=== PATIENT | female | born 2000 | race Caucasian/White ===

== ENCOUNTER 2021-10-17 15:07 | Emergency (ER) | payer OTHER, SELFPAY ==
[2021-10-17 15:10] VITALS: BP 159/83; PULSE 122; RESP 18; TEMP 37.5; O2SAT 100; BMI 22.7
--- NOTE | 2021-10-17 15:22 | ED_ITS ---
HPI - URI/Sore Throat General Chief Complaint: Upper Respiratory Symptoms Stated Complaint: flu like symptoms/sore throat Time Seen by Provider: 10/17/21 15:12 Source: patient Mode of arrival: ambulatory Limitations: no limitations History of Present Illness HPI Narrative: 21yo female previously healthy here with 4 days of cough, subjective fevers, body aches, congestion. No shortness of breath, chest pain, vomiting, diarrhea, rash, neckpain/stiffness. Received moderna x2. Related Data Previous Rx's Medication Instructions Recorded oseltamivir 75 mg capsule (Tamiflu) 75 mg PO Q12H 5 Days #10 cap 10/17/21 Allergies Allergy/AdvReac Type Severity Reaction Status Date / Time acetaminophen Allergy Nausea Verified 10/17/21 15:25 Review of Systems Review of Systems: Yes all other systems are reviewed and are negative Constitutional: Constitutional: Reports no additional constitutional complaints, Reports body ache(s), Denies chills, Reports fever(s), Denies headache(s) and Denies weakness Eyes: Eyes: Reports no additional eye complaints and Denies change in vision ENT: Reports system reviewed and no additional complaints, except as documented, Denies dizziness, Denies headache(s), Reports nasal congestion, Denies nasal discharge and Denies neck pain Cardiovascular: Cardiovascular: Reports no additional cardiovascular complaints, Denies chest pain, Denies leg edema and Denies dyspnea Respiratory: Respiratory: Reports no additional respiratory complaints, Reports cough and Denies dyspnea Gastrointestinal: Gastrointestinal: Reports no additional gastrointestinal complaints, Denies abdominal pain, Denies diarrhea, Denies nausea and Denies vomiting Genitourinary: Genitourinary: Reports no additional female genitourinary complaints and Denies urinary incontinence Musculoskeletal: Musculoskeletal: Reports no additional musculoskeletal complaints, Denies back pain, Denies arthralgias, Denies joint swelling, Denies neck pain, Denies numbness and Denies tingling Integumentary/Breasts: Skin/Breast: Reports system reviewed and no additional complaints, except as docu and Denies rash Neurologic: Denies Abnormal speech present, Denies dizziness, Denies headache(s), Denies numbness, Denies tingling and Denies weakness PMFSH Past Medical History Attestation statement: The following information was validated with the patient. Source: old records reviewed and nursing notes reviewed Social History Social History Advance Directives: No Advance Directives Information Provided: No Patient : No Physical Exam Vital Signs: Vital Signs: Last Vital Signs Temp 97.5 F 10/17/21 16:15 Pulse 108 H 10/17/21 16:15 Resp 18 10/17/21 16:15 BP 159/83 H 10/17/21 15:10 Pulse Ox 98 10/17/21 16:15 BMI result Body Mass Index 22.7 Const: General: cooperative, healthy appearing, comfortable and no acute distress Orientation/consciousness: patient oriented x3 Limitations: no li mitations HEENT: Head: Yes normal to inspection Ears: hearing grossly normal bilaterally and TM's normal bilaterally General nose exam: Normal external nose present Face and sinus: Yes normal facial exam Mouth: Normal oral and palatal mucosa present Throat: Yes posterior oropharynx normal, Yes tonsils normal and Yes uvula midline Eyes: General: appearance normal, both eyes and all related structures Pupils: Equal, round and reactive pupils present Neck: Neck: Yes normal visual inspection, Yes full ROM, Yes no lymphadenopathy and Yes no meningeal signs Chest: Chest palpation & inspection: normal inspection of the chest Resp: Effort & Inspection: normal respiratory effort Auscultation: clear to auscultation bilaterally Cardio: Rate: regular rate Rhythm: regular rhythm Peripheral pulses: Peripheral pulses 2+ throughout GI: Inspection: Yes normal to inspection Palpation (GI): Soft to palpation and nontender Auscultation: normal bowel sounds Back/Spine/Pelvis: Thoracic/Lumbar Spine: thoracic and lumbar spine normal to inspection Skin: General skin exam: no rashes or lesions noted Neuro: General: patient oriented x3, no meningeal signs, no focal motor deficits and normal sensation to monofilament Cranial nerves: Yes Equal, round and reactive pupils present Cognition (Neuro): normal cognition Speech: No Abnormal speech present Gait exam (Neuro): Normal gait present Motor exam (neuro): 5/5 motor strength present throughout Extrem: General: Yes normal to inspection Course Course Course Narrative: 21yo female here with flu like symptoms x 4 days. Low grade temp here with tachycardia. Will check covid/flu screening, give ibuprofen and re-assess 1615-flu A positive. Heart rate and temp improved after Motrin. Plan for discharge home with course of Tamiflu. Reviewed side effects with patient. Reviewed worrisome signs and symptoms of when to return to the emergency department. Comfortable discharge home. MDM - URI/Sore Throat Differential Diagnosis Differential diagnosis: Likely viral infection and influenza Medical Records Attestation: I reviewed the patient's medical records. Lab Data Attestation: I reviewed the patient's lab results. Labs: Lab Results 10/17/21 10/17/21 Range/Units 15:20 15:20 COVID-19 (REECE) Negative (Negative) COVID-19 Clin Com See Note Influenza Type A (COLLEEN) Positive A (Negative) Influenza Type B (COLLEEN) Negative (Negative) Influenza A & B Note See Note Discharge Plan Discharge Clinical Impression: Influenza Patient Disposition: Home, Self-Care Instructions: Influenza (DC) Additional Instructions: COVID screen negative Alternate motrin/tylenol for pain or fever Increase fluids, rest Prescriptions: New oseltamivir [Tamiflu] 75 mg capsule 75 mg PO Q12H 5 Days Qty: 10 0RF Referrals: Physician,Nonstaff [Primary Care Provider] - 1 week (for persistent symptoms ) Stand Alone Forms: Work/School Release Interventions: ED Discharge Assessment Last Done: 10/17/21 16:23
[2021-10-17] MEDS: Ibuprofen 600 MG TABLET PO (15:35)
[2021-10-17 15:41] LABS: COVID-19 Test Negative (Negative); IDNOW Serial# 16C4AD1C
[2021-10-17 15:44] LABS: Influenza A Positive (Negative); Influenza B2 Negative (Negative)
[2021-10-17 16:15] VITALS: PULSE 108; RESP 18; TEMP 36.4; O2SAT 98
== END 2021-10-17 16:24 | disposition home or self-care (01) ==
PROVIDERS: Nurse Practitioner Family; Emergency Provider Emergency Medicine
DX: J11.1 Influenza due to unidentified influenza virus with other respiratory manifestations (principal); Z20.822 Contact with and (suspected) exposure to COVID-19; R50.9 Fever, unspecified
CPT/HCPCS: 87502; 87635; 99283

== ENCOUNTER → 2024-11-19 08:00 | Outpatient (BNV) | payer BC, SELFPAY | PROVIDERS: Visit Provider Internal Medicine Cardiovascular Disease | DX: R00.0 Tachycardia, unspecified (principal) | CPT/HCPCS: 93244 ==

== ENCOUNTER → 2024-11-19 08:30 | Outpatient (REF) | payer BC, SELFPAY ==
--- OUTSIDE RECORDS SUMMARY | 2024-11-20 17:15 | XMS_ITS | Clinical Summary ---
Author Organization [address] [address] Phone Care Team Providers Care Manager Filter Name Role Phone Hugo Peoples DO Primary Care Provider [phone] Allergies Active Allergy Reactions Criticality Noted Date Comments Acetaminophen Dizziness,Other (See Comments) Medium 08/25/2022 Diphenhydramine Dizziness High 08/22/2023 Hallucinations Medications buPROPion XL (WELLBUTRIN XL) 300 mg 24 hr tablet Take 1 tablet (300 mg total) by mouth every morning. Active busPIRone (BUSPAR) 5 mg tablet TAKE BY 1 BY MOUTH 2 TIMES A DAY FOR 3 DAYS, THEN 2 BY MOUTH 2 TIMES A DAY 07/15/2023 Active APRI 0.15-0.03 mg per tablet TAKE 1 TABLET BY MOUTH EVERY DAY PT NEEDS APPT 06/26/2023 Active inositoL-D chiro inositoL 2,000-50 mg PwPk Take by mouth. Active Social History Tobacco Use Types Packs/Day Years Used Date Smoking Tobacco: Never Smokeless Tobacco: Never Tobacco Cessation:Counseling Given: Not Answered Alcohol Use Standard Drinks/Week Comments Not Currently 0 (1 standard drink = 0.6 oz pur e alcohol) Comments No Sex and Gender Information Value Date Recorded Sex Assigned at Not on file Legal Sex Female 6:32 AM EST Gender Identity Not on file Sexual Orientation Not on file Last Filed Vital Signs Vital Sign Reading Time Taken Comments Blood Pressure - - Pulse - - Temperature - - Respiratory Rate - - Oxygen Saturation - - Inhaled Oxygen Concentration - - Weight 72.6 kg (160 lb) 08/22/2023 12:54 PM EST Height 170.2 cm (5' 7 ) 08/22/2023 12:54 PM EST Body Mass Index 25.06 08/22/2023 12:54 PM EST Plan of Treatment Health Maintenance Due Date Last Done Comments MMR Vaccines (1 of 1 - Stand emeirta series) 2002 DTaP/TDaP Vaccines (1 - Tdap) 2008 HIV screening 2014 Varicella Vaccines (1 of 2 - 13+ 2-dose series) 2014 HPV vaccine series (1 - 3-do se series) 2016 Chlamydia screening 2018 Hepatitis C screening 2019 Hepatitis B vaccine series ( 1 of 3 - 19+ 3-dose series) 2020 Tetanus adult (Td q 10,TDAP once) 2021 Cervical cancer screening 2022 Covid-19 vaccine series (2 - season) 2024 08/22/2021 Influenza vaccine 03/18/2025 RSV Immunization (1 - 1-dose 75+ series) 2076 HIB Vaccines Aged Out No longer eligi ble based on patient's age to complete this topic Hepatitis A Vaccines Aged Out No long er eligible based on patient's age to complete this topic IPV Vaccines Aged Out No longer eligi ble based on patient's age to complete this topic Meningococcal Vaccine Aged Out No margie kash eligible based on patient's age to complete this topic Pneumococcal Vaccine (2 - 49 years) Aged Out No longer eligible b ased on patient's age to complete this topic Rotavirus Vaccines Aged Out No longer eligible based on patient's age to complete this topic Insurance [facility] CIGNA CIGNA Care Teams Manager Filter Relationship Specialty Start Date End Date Hugo Peoples DO [address] [facility] [address] [place] [phone] PCP - General Family Medicine 05/30/23
--- OUTSIDE RECORDS SUMMARY | 2024-11-20 17:15 | XMS_ITS | Encounter Summary ---
Author Organization [facility] and [facility] Address [address] [place] [phone] Care Team Providers Care Merchandising Representative Name Role Phone Hugo Peoples DO Primary Care Provider [phone] Reason for Referral * Consultation (Routine) - Closed Specialty Diagnoses / Procedures Referred By Contact Referred To Contact Reproductive Endocrinology/Infertili ty Diagnoses PCOS (polycystic ovarian syndrome) Hugo Peoples DO [address] [address] Phone: tel:[phone] fax: Reproductive Endocrinology & Infertility at [address] [place] [address] Phone: tel: Referral ID Status Reason Start Date Expiration Date V isits Requested Visits Authorized [id number] Closed Specialty Services Required 05/30/2023 05/29/2024 1 1 Encounter Details Date Type Department Care Team (Latest Contact Info) Description 05/30/2023 Transcribed Orders Reproductive Endocrinology & Infertility at [address] [place] [address] Obtain, Unable To PCOS (polycystic ovarian syndrome) (Primary Dx) Social History Tobacco Use Types Packs/Day Years Used Date Smoking Tobacco: Never Assessed Comments Unknown Sex and Gender Information Value Date Recorded Sex Assigned at Not on file Legal Sex Female 6:32 AM EST Gender Identity Not on file Sexual Orientation Not on file documented as of this encounter Plan of Treatment Scheduled Referrals Name Type Priority Associated Diagnoses Order Schedule Ambulatory referral to Reproductive Endocrinology/Inferti lity Outpatient Referral Routine PCOS (polycystic ovarian syndrome) Ordered: 05/30/2023 documented as of this encounter Visit Diagnoses Diagnosis PCOS (polycystic ovarian syndrome)- Primary Polycystic ovaries documented in this encounter Care Teams Merchandising Representative Relationship Specialty Start Date End Date Hugo Peoples DO [address] [facility] [address] [place] [phone] PCP - General Family Medicine 05/30/23 documented as of this encounter
--- OUTSIDE RECORDS SUMMARY | 2024-11-20 17:15 | XMS_ITS | Encounter Summary ---
Author Organization [facility] and [facility] Address [address] [place] [address] Care Team Providers Care Senior Asic Engineer Name Role Phone Hugo Peoples DO Primary Care Provider [phone] Encounter Details Date Type Department Care Team ([facility] st Contact Info) Description 07/20/2023 Abstract Reproductive Endocrinology & Infertility at [address] [facility] [address] [address] Jannet Chavez MD [address] [place] [address] [address] [place] [phone] Social History Tobacco Use Types Packs/Day Years Used Date Smoking Tobacco: Never Assessed Comments Unknown Sex and Gender Information Value Date Recorded Sex Assigned at Not on file Legal Sex Female 6:32 AM EST Gender Identity Not on file Sexual Orientation Not on file documented as of this encounter Plan of Treatment Not on file documented as of this encounter Visit Diagnoses Not on filedocumented in this encounter Care Teams Senior Asic Engineer Relationship Specialty Start Date End Date Hugo Peoples DO [address] [place] [phone] PCP - General Family Medicine 05/30/23 documented as of this encounter
--- OUTSIDE RECORDS SUMMARY | 2024-11-20 17:15 | XMS_ITS | Data Portability ---
Author Organization [facility] [address] Address [address] [place] [address] Assessment No assessment recorded. Plan of Treatment Reminders Order Date Submit Date Provider Last Modified By Organization Details Last Modified Time Details Appointments None recorded. Lab rapid flu (A+B) 2021 [facility] [address], [address] [place] [address], [phone], 17:47:35 Referral None recorded. Procedures None recorded. Surgeries None recorded. Imaging None recorded. Medication Orders prednisone 20 mg tablet 2021 [facility][id number], [address] [place], [address], 17:44:34 benzonatate 200 mg capsule 2021 [facility] #[id number], [address] [place], [address], 17:44:33 albuterol sulfate HFA 90 mcg/actuati on aerosol inhaler 2021 [facility] #[id number], [address] [place], [address], 17:44:34 Patient TargetsNo targets recorded. Patient Instructions Encounter Date Encounter Id Patient Instructions Last Modified By Organization Details Last Modified Time 06/21/2022 [id number] upper respirator y infection (cold): care instructions cheryle [email or web address] Not available 06/21/2022 17:44:31 Reason for Referral None Reported. Results Created Date Observation Date Name Description Value Unit Range Abnormal Flag Note LastModifiedBy Organization Detail LastModifiedTime 06/21/20 22 06/21/2022 rapid flu (A+B) Unknown Analyte negati ve Not Available _[facility] vil[facility] [address], [address], 06/21/2022 17:17:05 06/21/20 22 06/21/2022 rapid flu (A+B) Unknown Analyte negati ve Not Available [facility] [address], [address], 06/21/2022 17:17:05 06/21/20 22 06/21/2022 rapid flu (A+B) Unknown Analyte Negati ve Not Available [facility] [address], [address], 06/21/2022 17:17:05 Result Notes None recorded. Procedures Surgical History Date Name Laterality Status Provider Name and Address Organization Details Recorded Time 07/18/19 19 cholecystectomy completed SHANIA KOCH - [facility] 06/21/2022 17:16:04 Imaging Results None recorded. Procedure Notes None recorded. Medical Equipment None Reported. Allergies Allergen ID Allergen Name Allergen Category Reaction Reaction Severity Criticality Documentation Date Start Date Code Code System Note Provider Name and Address Organization Details Recorded Time 17983 acetamino phen medicatio n Not available Not available Not available 06/21/2022 161 RxNorm ZEE Daniels - [facility] 17:14:20 Medications Name Sig Start Date Stop Date Status Note LastModified by Organization Details LastModified Time amoxicillin 500 mg capsule active Not Available Not Available Not Available doxycycline hyclate 100 mg capsule TAKE 1 CAPSULE (ORAL) 2 TIMES PER DAY FOR 7 DAYS FOR INFECTION 06/21 completed Not Available Not Available Not Available Apri 0.15 mg-0.03 mg tablet TAKE 1 TABLET BY MOUTH EVERY DAY PT NEEDS APPT active Not Available Not Available No t Available benzonatate 200 mg capsule TAKE 1 CAPSULE BY MOUTH THREE TIMES A DAY NEEDED FOR 7 DAYS active Not Available Not Available No t Available prednisone 20 mg tablet TAKE 2 TABLETS BY MOUTH EVERY DAY IN THE MORNING FOR 5 DAYS active Not Available Not Available No t Available oseltamivir 75 mg capsule TAKE 1 CAPSULE BY MOUTH EVERY 12HOURS X5 DAYS 06/21 completed Not Available Not Available Not Available hydroxyzine HCl 25 mg tablet TAKE 1 TABLET BY MOUTH EVERY 6 HOURS NEEDED FOR ANXIETY 06/21 completed Not Available Not Available Not Available albuterol sulfate HFA 90 mcg/actuati on aerosol inhaler INHALE 2 PUFFS EVERY 4 HOURS BY INHALATIO N ROUTE NEEDED active Not Available Not Available No t Available fluticasone propionate 50 mcg/actuati on nasal spray,suspe nsion USE 1 SPRAY IN EACH NOSTRIL TWICE A DAY NEEDED FOR CONGESTIO N 06/21 completed Not Available Not Available Not Available bupropion HCl XL 300 mg 24 hr tablet, extended release TAKE 1 TABLET BY MOUTH IN THE MORNING active Not Available Not Available No t Available Vitals Date Recorded Body height Body mass index (BMI) Body weight Body temperature Oxygen saturation Oxygen saturation in Arterial blood by Pulse oximetry Heart rate Respiratory rate Systolic blood pressure Diastolic blood pressure Provider Name and Address Organization Details Last Updated DateTime 170.18 cm 24.3 kg/m2 16031.8 2 g 97.3 [degF] 98 % 98 % 108 /min 16 /min 131 mm[Hg] 85 mm[Hg] SHANIA AARON [place] - [facility] 17:18:52 Date Recorded Heart rate Provider Name an d Address Organization Details Last Updated DateTime 06/21/2022 98 /min ZEE ANDERSON [facility] [place], [address], [place] - [facility] 06/21/2022 17:43:05 Social History Question Answer Notes LastModified by Organizat ion Details LastModified Time Tobacco Smoking Status Never Smoker SHANIA anthony [place] - [facility] 06/21/2022 17:17:41 What Is Your Level Of Alcohol Consumption? None Information not available 06/21/2022 Do You Use Any Illicit Or Recreational Drugs? No [email or web address] Information not available 06/21/2022 Have You Recently Traveled Abroad? No [email or web address] Information not available 06/21/2022 Are You Currently In School? Yes [email or web address] Information not available 06/21/2022 Do You Or Have You Ever Used Any Other Forms Of Tobacco Or Nicotine? No [email or web address] Information not available 06/21/2022 Sex: Unknown Functional Status None recorded. Mental Status None recorded. Family History Relationship Description Onset Age of this Age Resolved Age Notes LastModified by Organization Details LastModified Time Father Diabetes mellitus Not available 2021 17:16:28 Mother Degenerative disorder of macula [email or web address] Not available 2021 17:16:55 Medical History Condition Response Gout N Cancer, liver N Thyroid disorder N Hyperthyroidism N Rheumatoid arthritis N GI bleeding N Irritable bowel syndrome N Depression N COPD N Tinnitus, unspecified ear N Pneumonia N Cancer, uterus N Mental disorder, NOS N Headaches/Migraines N Insomia N Alzheimer's disease N Anxiety Disorder N Obesity N Arthritis N Cancer N Stroke N Alcohol abuse N Liver disease N Cancer, bladder N Allergy Food/Medication N Peripheral artery disease N Oxygen dependence N Fibromyalgia N Atrial fibrillation N Tinnitus, right ear N Kidney Disease N Deep vein thrombosis DVT leg N Migraine N Disorder of circulatory system N Anxiety N Cancer, brain N Disease of pancreas N Cancer, lung N Eating disorder, unspecified N Cancer, colon N Crohn's disease N Cancer, cervical N N Cancer, breast N Cancer, skin N Coagulation defect, unspecified N Cataract N Asthma N Congestive heart failure (CHF) N Substance Abuse N Vertigo N Coronary artery disease N Pulmonary Embolism N Cancer, pancreas N Tobacco use disorder N Disease of lung N Allergic rhinitis N Joint disorder, unspecified N Menopause N Drug dependence, unspecified N Back disorder N Hypothyroidism N Disorder kidney N Sickle Cell Anemia N Cancer, ovarian N Shafer's Palsy N Disorder of eye N Cancer, prostate N Allergy Seasonal N Drug abuse N Disorder of urinary system N Disorder of lymph system N Radiculopathy, site unspecified N Myoneural disorder, unspecified N Nervous system disorder N ADHD N High Cholesterol N Post-herpetic neuralgia N Aneurysm, cerebral N Tinnitus, left ear N Prostate hypertrophy, benign N Disorder of skin/subcutaneous N Osteoarthritis N Disorder of ear N Ovarian cysts N Parkinson's disease N Low back pain N Carpal tunnel syndrome N Disorder of muscle N Anemia N Kidney stone N Bipolar affective disorder N Leukemia, unspecified N Diabetes N Endocrine disorder N Disorder involving the immune mechanism N Seizure N Hyperlipidemia N Lymphoma N Emphysema, unspecified N Eczema N Diverticulitis N Dementia N Lupus N Seizure disorder N Reflux/GERD N Sleep Apnea N Cancer, bone N Disorder of thyroid N Cardiac arrhythmia, unspecified N Disorder of bone N Heart Disease N Liver Disorder N Disorder of brain N Hypertension N Aneurysm, aortic N Osteoporosis N Gastroesophageal reflux (GERD) N Disease of digestive system, unspecified N Gynecological HistoryNo gynecological history recorded. Obstetrics History GPAL:G 0 P 0 0 0 0 Past Encounters Encounter ID Performer Location Encounter Start Date Encounter Closed Date Diagnosis/Indication Diagnosis SNOMED-CT Code Diagnosis ICD10 Code Diagnosis Note [id number] [address] [place] [address] 05/02/2022 13:10:15 05/02/2022 14:05:09 [id number] [address] [place] [address] 09/17/2020 11:31:06 09/17/2020 16:39:03 [id number] [address] [place] [phone] 07/12/2020 13:31:15 07/12/2020 19:14:59 [id number] [address] [place] [address] 09/17/2020 14:26:59 09/17/2020 15:39:17 [id number] ZEE LEIVA [address] [place] [address] 06/21/2022 16:55:12 06/21/2022 17:46:29 Influenza-like symptoms 677050026 R68.89 Acute uppe r respiratory infection 94493671 J06.9 Health Concerns Section Related Observation LastModified by Organization Hedy fleming LastModified Time None Recorded Concern Status LastModified by Organization Details LastModified Time None Recorded Advance Directives Directive None Recorded Payers Encounter Date Sequence Insurance Name Policy Number Policy Mike Covered Member ID Mike Member ID Guarantor Name 07/12/2020 1 [facility] [id number] Chichi Vika Geitz [id number] [facility] 09/17/2020 1 [facility] [id number] Chichi Vika Geitz [id number] [facility] 09/17/2020 1 [facility] [id number] Chichi Vika Geitz [id number] [place] Geitz 05/02/2022 1 [facility] [id number] Chichi Vika Geitz [id number] [place] Geitz 06/21/2022 1 [facility] [id number] Chichi Vika Geitz [id number] [place] Geitz Notes Date Note Type Note Provider Name and Address Organization Details Recorded Time 06/21/2022 text/html Pt states she wa s seen in different urgent care last Tu. was given amoxicillin for right ear infection. not feeling better. also still has dry cough, intermittent nasal congestion, chills, chest sore from coughing and fatigue x 6 days. covid and flu negative at last urgent care visit as well. No fever, SOB, dizziness, rash. ZEE AMES [facility] [place], [address], [place] - [facility] 06/21/2022 17:51:25 OBGyn Episode No OBEpisode recorded.
--- OUTSIDE RECORDS SUMMARY | 2024-11-20 17:15 | XMS_ITS | Clinical Summary ---
Author Organization [facility] Address [address] [place] [id number] Care Team Providers Care [place] Machine Operator Name Role Phone No, Pcp Primary Care Provider Unavailabl e Allergies Active Allergy Reactions Criticality Noted Date Comments Acetaminophen Dizziness 08/25/2022 Medications buPROPion XL (WELLBUTRIN XL) 300 mg 24 hr tablet 08/23/2022 Active Apri 0.15-0.03 mg tablet TAKE 1 TABLET BY MOUTH EVERY DAY PT NEEDS APPT 06/10/2022 Active terbinafine (LamISIL) 250 mg tablet TAKE 1 TABLET (ORAL) DAILY FOR 45 DAYS 08/21/2022 Active inositol/D-chiro -inositol (OVASITOL ORAL) Take by mouth Active mecobalamin, vitamin B12, 1,000 mcg tablet,chewable Chew Acti ve Active Problems Problem Noted Date Diagnosed Date Vitamin D deficiency 08/25/2022 B12 deficiency 08/25/2022 PCOS (polycystic ovarian syndrome) 08/25/2022 Anxiety 08/25/2022 Depression 08/25/2022 Immunizations Name Administration Dates Next Due COVID-19 Moderna SARS-CoV-2 mRNA, LNP-S, PF, 50 mcg/0.5 mL (Blue) 08/22/2021 Family History Medical History Relation Comments Asthma Brother sarcoma Father Relation Status Comments Brother Alive Father Alive Mother Alive Social History Tobacco Use Types Packs/Day Years Used Date Smoking Tobacco: Never Smokeless Tobacco: Never Tobacco Cessation:Counseling Given: Not Answered Alcohol Use Standard Drinks/Week Comments Never 0 (1 standard drink = 0.6 oz pur e alcohol) PHQ-2 Answer Date Recorded Depression Risk (PHQ2) Score 0 02/2023 Comments Unknown Sex and Gender Information Value Date Recorded Sex Assigned at Not on file Legal Sex Female 12:55 PM [facility] Gender Identity Not on file Sexual Orientation Not on file Last Filed Vital Signs Vital Sign Reading Time Taken Comments Blood Pressure 134/80 08/30/2022 10:06 AM EST Pulse 105 08/30/2022 10:06 AM EST Temperature 36.7 ??C (98 ??F) 08/30/2022 10:06 AM EST Respiratory Rate - - Oxygen Saturation 99% 08/30/2022 10:06 AM EST Inhaled Oxygen Concentration - - Weight 72.8 kg (160 lb 9.6 oz) 08/30/2022 10:06 AM EST Height 169.1 cm (5' 6.58 ) 08/25/2022 10:[address] Body Mass Index 25.48 08/25/2022 10:02 AM EST Plan of Treatment Health Maintenance Due Date Last Done Comments Hepatitis C Screening 2001 PHQ-9 Depression Screen 2013 HPV Vaccines (1 - 3-dose series) 2016 LELE-7 Anxiety Screen 2019 DTaP,Tdap,and Td Vaccines (1 - Tdap) 2020 Annual Preventive Exam 08/30/2023 08/30/2022 Chlamydia/Gonorrhea Screen 08/30/2023 08/30/2022 COVID-19 Vaccine (2 - 2023-2 5 season) 2024 08/22/2021 Influenza Vaccine (Season Ended) 2025 Cervical Cancer Screening (Pap/HPV) 08/30/2025 08/30/2022 RSV Vaccine (SCDM) (1 - 1-do se 75+ series) 2076 Meningococcal Vaccine Aged Out No margie kash eligible based on patient's age to complete this topic Procedures Procedure Name Priority Date/Time Associated Diagnosis Comments [facility] APTIMA HPV AGE GUIDELINE FOR CERVICAL CANCER AND STDS Routine 08/30/2022 11:00 AM EST Screening for cervical cancer from Last 3 Months or Most Recently Relevant to Health Maintenance Results * [facility] Age-Based Guideline for Cervical Cancer Aptima, CT/NG (LCA = [id number]) (08/30/2022 11:00 AM EST) Age Gdln ACOG Testing 21-24 [facility] Cervix 08/30/2022 11:0 0 AM EST 08/30/2022 5:00 AM EST Narrative [facility] - 09/03/2022 2:11 PM EST Performed at: ??01 - [facility] [address] ??[id number] Grip Assembler: Truman Venegas MD, Phone: ??[phone] Specimen Comment: Source.............Endocervix Specimen Comment: LMP / Prev Treat...[id number];None Specimen Comment: Other..............Oral Contraceptives Specimen Comment: No. of containers..01 ThinPrep Vial us Pamela Langston NP LAB CYTOLOGY ORDERABLES Fi nal Result [facility] from Last 3 Months or Most Recently Relevant [place] [id number] [employer] Care Teams [place] Machine Operator Relationship Specialty Start Date End Date No, Pcp PCP - General 08/25/22
== END ==
LOC: HO.CARD 08:30
PROVIDERS: Visit Provider Student in an Organized Health Care Education/Training Program
DX: R00.2 Palpitations (principal)
CPT/HCPCS: 93242